=== PATIENT | male | born 1940 | race Caucasian/White ===

== ENCOUNTER → 2024-03-10 | Outpatient (CLI) | payer MEDICARE ==
[2024-03-10 17:01] LABS: CREATININE 3.6 mg/dL (0.5-1.3); POTASSIUM 4.8 mmol/L (3.5-5.1)
== END | disposition home or self-care (01) ==
LOC: LAB 16:05
PROVIDERS: ATTEND Internal Medicine
DX: I51.7 Cardiomegaly (principal); I16.0 Hypertensive urgency
CPT/HCPCS: 36415; 80048; 82088; 83880; 84244

== ENCOUNTER → 2024-03-24 | Outpatient (CLI) | payer MEDICARE ==
--- NOTE | 2024-03-25 09:48 | HMCSR ---
APPROVED REPORT EXAM: Two-dimensional and M-mode echocardiogram with Doppler and color Doppler. Study Details: TDS Hx: ex-smoker INDICATION ICD: I51.7 Cardiomegaly, I16.0 2D Dimensions RVDd3.0 cmLVEF(%)56.1 (>50%)LVED Vol(simp.)96.7 mL IVSd1.4 (0.7-1.1cm)FS(%)29 %LVES Vol(simp.)41.8 mL LVDd4.8 (3.8-5.6cm)LA (2D)3.8 (1.6-4.0cm)LVEF(%, simp.)57 % PWd1.2 (0.7-1.1cm)Ao Root(2D)3.4 (2.0-3.7cm)LA ESV INDEX (4CH)23.00 mL/m2 IVSs1.2 cmLVOT diam2.3 (1.8-2.4cm)LA ESV INDEX (2CH)21.70 mL/m2 LVDs3.4 (2.5-4.0cm)LA ESV INDEX (BP)23.00 mL/m2 PWs1.6 cm M-Mode Dimensions LA (MM)4.0 (1.6-4.0cm) Ao Root(MM)3.3 (2.0-3.7cm) Aortic Valve AoV Vmax4.0 m/Roman Peak GR66.0 mmHgLVOT VTI0.18 m AoV VTI0.7 mAo Mean GR42.0 mmHgAVA (VTI) 1.1 cm2 MAHAD (VMAX)1.1 cm2 Mitral Valve MV E Vmax68.9 cm/sDECEL Xcli485 ms MV A Fizx609.2 cm/sP 1/2 T57 ms E/A ratio0.6MVA (PHT)3.9 cm2 TDI E/E' Tnkwhv26.0E/E' Xkknyml56.4 Medial E' Peak V3.00 cm/sLateral E' Peak V4.20 cm/s Pulmonary Valve PV Vmax1.2 m/s PV Peak GR5.6 mmHg Tricuspid Valve RAP (EST) 8 mmHgRVSP8.0 mmHg Left Ventricle Left ventricular cavity size is normal. Moderate concentric left ventricular hypertrophy. LVEF is 55- 60%. Diastolic function is indeterminate. Right Ventricle The right ventricle is normal size. The right ventricular systolic function is normal. Atria The left atrium size is normal. The right atrium size is normal. Aortic Valve Aortic valve is trileaflet, heavily thickened. Subvalvular aortic valve is calcified, adjacent to the anterior mitral valve leaflet. Trivial aortic regurgitation is present. There is moderate aortic casandra nosis. Peak velocity across the valve is 4.0 m/s. The maximum pressure gradient is 66 mmHg with mean pressure gradient of 42 mmHg. The MAHAD by planimetry measures 1.2 cm2. Mitral Valve There is mitral annular calcification. The mitral valve is mildly thickened. Mitral valve leaflets op en well. The anterior mitral valve leaflet is mildly thickened. There is trivial mitral valve regurgi tation noted. There is no mitral valve stenosis. Tricuspid Valve The tricuspid valve leaflets appear normal. Pulmonic Valve Pulmonic valve is not well visualized. There is no significant pulmonic valvular regurgitation. Great Vessels The aortic root is normal in size. IVC is not well visualized. Pericardium No pericardial effusion. Other Information Quality : Technically difficult study due to pts body habitus. Rhythm : NSR Conclusion LVEF is 55-60%. Moderate concentric left ventricular hypertrophy. Diastolic function is indeterminate. Trileaflet aortic valve, calcified cusps. Vpk 4.0 ms/, pk/mn gradients of 66/42 mmHg however MAHAD by p lanimetry is 1.2 cm2, indicating moderate stenosis. Subvalvular aortic valve is calcified, adjacent to the anterior mitral valve leaflet. The anterior mitral valve leaflet is calcified and mildly thickened.
== END | disposition home or self-care (01) ==
LOC: RAH 14:40
PROVIDERS: ATTEND Internal Medicine
DX: I08.0 Rheumatic disorders of both mitral and aortic valves (principal); I16.0 Hypertensive urgency
CPT/HCPCS: 93306

== ENCOUNTER → 2024-03-25 | Outpatient (CLI) | payer MEDICARE ==
--- NOTE | 2024-03-28 23:50 | HMCSR ---
APPROVED REPORT Indications Uncontrolled HTN Renal Artery Doppler Origin (R) 55.6/21.5 cm/secOrigin (L) 103.1/13.8 cm/sec Proximal (R) 59.5/20.5 cm/secProximal (L) 104.6/26.1 cm/sec Mid (R) 96.9/29.2 cm/secMid (L) 98.4/24.6 cm/sec Distal (R) 109.2/46.1 cm/secDistal (L) 101.5/26.1 cm/sec Renal/Aorta Ratio (R) 1.85Renal Aorta Ratio (L) 1.77 Resistive Index (R) 0.62Resistive Index (L) 0.61 Segmental A. (R) 23.5/9.0 cm/secLt. Segmental A. (L) 18.7/7.3 cm/sec Renal Measurements Kidney Size (R) 9.1x5.4x4.4 cmKidney Size (L)10.7x5.2x4.5 cm Aortic Doppler VelocityWaveform Proximal Aorta 59.0 cm/sec Technologist Impression Based on the renal/aortic ratio there is no evidence of significant stenosis in the right and left re nal arteries. Both kidneys appear to be within normal size parameters (greater than 9.0cm and symmetrical). Conclusion Normal renal artery ultrasound. The proximal abdominal aorta is grossly patent without significant stenoses or dilatations. Based on the renal/aortic ratio there is no evidence of significant stenosis in the right or left frank al arteries. Conclusion Normal renal artery ultrasound. The proximal abdominal aorta is grossly patent without significant stenoses or dilatations. Based on the renal/aortic ratio there is no evidence of significant stenosis in the right or left frank al arteries.
== END | disposition home or self-care (01) ==
LOC: SHCH 09:07
PROVIDERS: ATTEND Internal Medicine
DX: I51.7 Cardiomegaly (principal); I16.0 Hypertensive urgency
CPT/HCPCS: 93975